=== PATIENT | male | born 1990 | race Two or more races ===

== ENCOUNTER 2023-11-16 16:36 | Outpatient (AMB) | payer BC, SELFPAY ==
--- NOTE | 2023-11-16 16:40 | A.OFFPC_ITS ---
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 No chest pain or shortness of breath. No acute complaints. REPLACED BY [facility] Surgical History Right forearm fracture Family History Father Hodgkin lymphoma Mother No problems noted. Social History (Updated 11/16/23 @ 20:03 by Dayana Flores MD) Housing: Apartment Alcohol intake: current Alcohol intake frequency: holidays/special occasions only Alcohol type: hard liquor Patient Tobacco Use Status: Never used Tobacco e-Cigarette/Vaping Use: Never Used Second Hand Smoke Exposure: No service: No Current occupational status: employed Current occupational exposures/hazards: No Cognitive needs: No Hearing needs: No Vision needs: No Questionnaire PHQ-9 Over the last 2 weeks, how often have you been bothered by any of the following problems? 1. Little interest or pleasure in doing things: not at all 2. Feeling down, depressed, or hopeless: not at all 3. Trouble falling or staying asleep, or sleeping too much: not at all 4. Feeling tired or having little energy: not at all 5. Poor appetite or overeating: not at all 6. Feeling bad about yourself - or that you are a failure or have let yourself or your family down: not at all 7. Trouble concentrating on things, such as reading the newspaper or watching television: not at all 8. Moving or speaking so slowly that other people could have noticed. Or the opposite - being so fidgety or restless that you have been moving around a lot more than usual: not at all 9. Thoughts that you would be better off or of hurting yourself in some way: not at all Total score: 0 Depression Screening Interpretation: Negative Depression Screening Done: Yes 49220 - PHQ-9 Billing: Yes Source: Developed by Drs. Shant Estes, Dominique Montes De Oca, Sloan Diego and colleagues, with an educational maulik from [employer]. Thrive Questionnaire Date Thrive assessed: 11/16/23 I am a: Patient What is your living situation today?: I have a steady place to live Within the past 12 months, did the food you bought not last and you didn't have the money to get more?: Never true Within the past 12 months, did you worry whether your food would run out before you got money to buy more?: Never true Do you have trouble paying for medicines?: No Do you have trouble getting transportation to medical appointments?: No Do you have trouble paying your heating and electricity bill?: No Do you have trouble taking care of your child, family member or friend?: No Do you have trouble with day-to-day activities such as bathing, preparing meals, shopping, managing finances, etc.?: No Are you currently unemployed and looking for a job?: No Are you interested in more education?: No Please select the resources that you would like help with: None Currently or been in a relationship where the following occur: no concerns reported THRIVE Score: 0 AUDIT C Alcohol Use Questionnaire (AUDIT-C) 1. How often do you have a drink containing alcohol?: Never Total Score: 0 SHERYL-7 AMB Questionnaire SHERYL-7 Date SHERYL - 7 assessed: 11/16/23 Feeling nervous, anxious, or on edge: 0 = Not at all Not being able to stop or control worryin = Not at all Worrying too much about different things: 0 = Not at all Trouble relaxin = Not at all Being so restless that it is hard to sit still: 0 = Not at all Becoming easily annoyed or irritable: 0 = Not at all Feeling afraid as if something awful might happen: 0 = Not at all Total SHERYL-7 score (0-4 normal; 5-9 mild; 10-14 moderate; 15-21 severe): 0 Source: Developed by Drs. Shant Estes, Dominique Montes De Oca, Sloan Diego and colleagues, with an educational maulik from [employer]. SHERYL-7 Assessment Billing SHERYL-7 Assessment Tool: SHERYL-7 Assessment 89411 Review of Systems Const All systems reviewed & are unremarkable except as noted in HPI and below Eyes Reports no additional complaints, Denies change in vision and Denies other visual disturbances Card Denies chest pain at rest, Denies chest pain with activity, Denies edema, Denies irregular heart rhythm, Denies claudication, Denies dyspnea, Denies dyspnea on exertion, Denies orthopnea, Denies paroxysmal nocturnal dyspnea and Denies slow heart rate Resp Denies cough, Denies dyspnea and Denies dyspnea on exertion GI Denies abdominal pain, Denies change in bowel habits, Denies excessive flatus, Denies nausea and Denies vomiting Denies urinary hesitancy, Denies urinary incontinence and Denies urinary urgency Musc Denies abnormal gait, Denies atrophy, Denies deformity and Denies limited range of motion Skin/Breast Denies bleeding lesions, Denies changing lesions and Denies rash Neuro Denies abnormal gait, Denies behavioral changes, Denies confusion and Denies [place] of coordination Psych Denies behavioral changes and Denies confusion Physical exam (Primary Care) Vital Signs: Last Vital Signs BP 116/72 11/16/23 16:41 BMI result Body Mass Index 31.2 Tobacco/Smoking Status: Tobacco use Status Tobacco use date assessed 11/16/23 11/16/23 16:49 Patient Tobacco Use Status Never used Tobacco 11/16/23 16:49 e-Cigarette/Vaping Use Never Used 11/16/23 16:49 PHQ-9: PHQ-9 Score PHQ-9: Total score 0 11/16/23 17:05 Depression Screening Interpretation: Negative Thrive Assessment: Date of Thrive Assessment Date Thrive assessed 11/16/23 11/16/23 16:49 Currently or been in a relationship where the following occur: no concerns reported Const General: No confusion Orientation/consciousness: patient oriented x3 and No confusion HENMT Head: Yes normal to inspection, Yes normocephalic and Yes atraumatic Ears: external ears normal Eyes General: appearance normal, both eyes and all related structures Eyelids: Yes eyelids normal Conjunctivae: conjunctivae normal Neck Neck: Yes normal visual inspection and Yes supple Resp Effort & Inspection: normal respiratory effort Auscultation: clear to auscultation bilaterally Cardio Jugular venous distension: no JVD Rate: regular rate Rhythm: regular rhythm Heart sounds: S1 normal heart sound present and S2 normal heart sound present GI Inspection: Yes normal to inspection Palpation (GI): Soft to palpation and nontender Auscultation: normal bowel sounds Skin General skin exam: no rashes or lesions noted Neuro General: patient oriented x3, no focal motor deficits and No confusion Extrem General: Yes full ROM Psych Appearance: grossly normal Assessment and Plan Assessment & Plan (1) Physical exam: Code(s): Z00.00 - Encounter for general adult medical examination without abnormal findings Plan: Repeat in a year. Orders: Orders Comprehensive [place]. Panel Fast Today Z00.00 - Encounter for general adult medical examination without abnormal findings Lipid Panel Today Z00.00 - Encounter for general adult medical examination without abnormal findings Complete Blood Count Auto Diff Today E66.9 - Obesity, unspecified, Z68.31 - Body mass index [BMI] 31.0-31.9, adult Coding Level of Care Code Est Pt Prev Care 18-39y(96143) Diagnoses Physical exam Z00.00 Additional Codes SHERYL-7 Assessment Billing - SHERYL-7 Assessment Tool: SHERYL-7 Assessment 24741 ([id number]) Time Spent (min) 33
[2023-11-16 16:41] VITALS: BP 116/72; BMI 31.2
== END 2023-11-16 17:08 | disposition home or self-care (01) ==
PROVIDERS: Visit Provider Internal Medicine
DX: Z00.00 Encounter for general adult medical examination without abnormal findings (principal)
CPT/HCPCS: 99395

== ENCOUNTER 2024-07-27 11:35 | Outpatient (AMB) | payer BC, SELFPAY ==
--- NOTE | 2024-07-27 11:39 | A.OFFPC_ITS ---
Vital Signs 07/27/24 11:44 Height 5 ft 8 in Weight 200 lb 4 oz BMI 30.4 BP 98/70 Blood Pressure Location Lt brachial Position Sitting Pulse 86 Pulse Source Pulse Oximeter Pulse Oximetry (%) 98 Oxygen Delivery Method Room Air Intake Visit Reasons: nerve issues on LT side of face Intake Note: Dr. Leon's patient is here for a follow-up from [facility] ED regarding numbness on the left side of the face, radiating to the left side of the neck. The patient was seen at [facility] ED for a left ear infection and was treated with Amoxicillin. Medical records have been requested. 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 He was recently seen at [facility] ER for acute left ear infection. His primary complaints were also left-sided numbness. He reports he has developed a bit of a lisp. He has no difficulty with swallowing. He does report when chewing he is not really able to feel the left side of his mouth. PENDING SALE TO [facility] Surgical History Right forearm fracture Family History Father Hodgkin lymphoma Mother No problems noted. Social History Housing: Apartment Alcohol intake: current Alcohol intake frequency: holidays/special occasions only Alcohol type: hard liquor Patient Tobacco Use Status: Never used Tobacco e-Cigarette/Vaping Use: Never Used Second Hand Smoke Exposure: No service: No Current occupational status: employed Current occupational exposures/hazards: No Cognitive needs: No Hearing needs: No Vision needs: No Questionnaire Thrive Questionnaire Date Thrive assessed: 11/16/23 SHERYL-7 AMB Questionnaire SHERYL-7 Date SHERYL - 7 assessed: 11/16/23 Source: Developed by Drs. Shant LDominique Momin, Sloan Diego and colleagues, with an educational maulik from [employer]. Review of Systems Const Denies headache(s) Eyes Denies loss of vision ENT Denies vertigo, Denies dizziness, Denies headache(s) and Denies sore throat Card Denies chest pain, Denies leg edema and Denies lightheadedness Resp Denies cough, Denies hemoptysis and Denies wheezing GI Denies abdominal pain, Denies melena, Denies constipation, Denies diarrhea and Denies vomiting Denies dysuria, Denies urinary frequency and Denies urinary urgency Musc Denies arthralgias, Denies joint swelling, Denies numbness and Denies tingling Neuro Denies Abnormal speech present, Denies behavioral changes, Denies vertigo, Denies dizziness, Denies headache(s), Denies loss of vision, Denies memory loss, Denies numbness and Denies tingling Psych Denies anxiety, Denies behavioral changes, Denies depression, Denies memory loss and Denies panic attacks Mo/Lymph Denies easy bleeding and Denies easy bruising Aller/Immun Denies wheezing Physical exam (Primary Care) Vital Signs: Last Vital Signs Pulse 86 07/27/24 11:44 BP 98/70 07/27/24 11:44 Pulse Ox 98 07/27/24 11:44 Oxygen Delivery Method Room Air 07/27/24 11:44 BMI result Body Mass Index 30.4 Tobacco/Smoking Status: Tobacco use Status Tobacco use date assessed 11/16/23 07/27/24 11:41 Patient Tobacco Use Status Never used Tobacco 07/27/24 11:41 e-Cigarette/Vaping Use Never Used 07/27/24 11:41 Thrive Assessment: Date of Thrive Assessment Date Thrive assessed 11/16/23 07/27/24 11:41 Const General: healthy appearing, no acute distress, alert and awake Nutritional Appearance: well nourished Orientation/consciousness: oriented to person, oriented to place and oriented to time HENMT Other: LEFT EAR: TYMPANIC MEMBRANE WITH SLIGHT BLOOD Ears: TM's normal bilaterally General nose exam: Normal nasal mucous membranes and turbinates present Eyes Conjunctivae: conjunctivae normal Sclerae: sclerae normal Pupils: Equal, round and reactive pupils present Neck Neck: Yes no lymphadenopathy and Yes no JVD Thyroid: Thyroid normal Carotids: no bruits Resp Effort & Inspection: normal respiratory effort and not tachypneic Auscultation: no crackles, no rales, no rhonchi and no wheezes Cardio Rate: regular rate Rhythm: regular rhythm Heart sounds: no murmurs and normal S1 and S2 GI Palpation (GI): Soft to palpation, nontender, no hepatomegaly and no splenomegaly Auscultation: normal bowel sounds Skin General skin exam: no rashes or lesions noted and dry skin Neuro General: oriented to person, oriented to place and oriented to time Cranial nerves: Yes Equal, round and reactive pupils present Speech: No Abnormal speech present Gait exam (Neuro): Normal gait present Motor exam (neuro): no tremor noted Extrem Right upper extremity: full ROM Left upper extremity: full ROM Right lower extremity: full ROM; no edema Left lower extremity: full ROM; no edema Psych Mental Status: mental status grossly normal Speech and movement: Normal speech and movement present Affect: normal affect Attitude: cooperative Thought process: Normal thought process present Office Procedures Flu Questionnaire Does the patient have a severe egg allergy?: No Immunizations Fluarix Triv [id number] (PF) 45 mcg (15 mcg x 3)/0.5 mL IM syringe Performing Provider: Terrell Willett PA-C [place] [facility] [place] [facility] Documented (not given) by: BRENNA Altman on 07/27/24 11:51 Reason Not Given: Received Previously Coding Level of Care Code Est Pt Level 3 (39595) Diagnoses Facial paralysis/[place] palsy G51.0 Assessment & Plan Assessment & Plan (1) Facial paralysis/[place] palsy: Code(s): G51.0 - Han's palsy Category: Medical Plan: 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 He is currently being treated for left-sided ear infection as well. Has left eardrum does appear to have some blood though no bulging and no external canal erythema or edema. He will continue the rest of his antibiotics. He does understand the clinical course Han's palsy disease. Orders: Orders Influenza [id number] Immunization Today Z23 - Encounter for immunization
[2024-07-27 11:44] VITALS: BP 98/70; PULSE 86; O2SAT 98; BMI 30.4
== END 2024-07-27 12:29 | disposition home or self-care (01) ==
LOC: HO.HMCH 11:36
PROVIDERS: PCP Internal Medicine; Visit Provider Physician Assistant
DX: Z23 Encounter for immunization (principal); G51.0 Bell's palsy

== ENCOUNTER → 2024-07-27 11:35 | Outpatient (BNVA) | payer BC, SELFPAY | PROVIDERS: PCP Internal Medicine; Visit Provider Physician Assistant | DX: G51.0 Bell's palsy (principal) | CPT/HCPCS: 90471 ==

== ENCOUNTER 2024-09-21 12:59 | Outpatient (AMB) | payer BC, SELFPAY ==
[2024-09-21 13:01] VITALS: BP 110/62; PULSE 92; O2SAT 96; BMI 30.6
--- NOTE | 2024-09-21 13:01 | A.OFFPC_ITS ---
Vital Signs 09/21/24 13:01 Height 5 ft 8 in Weight 201 lb 4 oz BMI 30.6 BP 110/62 Blood Pressure Location Lt brachial Position Sitting Pulse 92 Pulse Source Pulse Oximeter Pulse Oximetry (%) 96 Oxygen Delivery Method Room Air Intake Visit Reasons: Injury to the right thumb Intake Note: The patient is here for a right thumb injury sustained while closing a car door, causing the thumb to be jammed. The patient has been experiencing swelling with pain since yesterday. 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 The incident occurred when the patient's [id number]-yjny-ram son accidentally closed a door on the patient's hand. The event happened quite recently, and the patient noticed some swelling but reported good movement in the affected hand and minimal pain. The patient did not seek immediate care after the injury. There is no prior history of similar injuries or chronic hand issues reported. [facility] Surgical History Right forearm fracture Family History Father Hodgkin lymphoma Mother No problems noted. Social History Housing: Apartment Alcohol intake: current Alcohol intake frequency: holidays/special occasions only Alcohol type: hard liquor Patient Tobacco Use Status: Never used Tobacco e-Cigarette/Vaping Use: Never Used Second Hand Smoke Exposure: No service: No Current occupational status: employed Current occupational exposures/hazards: No Cognitive needs: No Hearing needs: No Vision needs: No Questionnaire PHQ-9 Over the last 2 weeks, how often have you been bothered by any of the following problems? 1. Little interest or pleasure in doing things: not at all 2. Feeling down, depressed, or hopeless: not at all 3. Trouble falling or staying asleep, or sleeping too much: not at all 4. Feeling tired or having little energy: not at all 5. Poor appetite or overeating: not at all 6. Feeling bad about yourself - or that you are a failure or have let yourself or your family down: not at all 7. Trouble concentrating on things, such as reading the newspaper or watching television: not at all 8. Moving or speaking so slowly that other people could have noticed. Or the opposite - being so fidgety or restless that you have been moving around a lot more than usual: not at all 9. Thoughts that you would be better off or of hurting yourself in some way: not at all Total score: 0 Depression Screening Interpretation: Negative Depression Screening Done: Yes 24435 - PHQ-9 Billing: Yes Source: Developed by Drs. Shant Estes, Dominique Montes De Oca, Sloan Diego and colleagues, with an educational maulik from [email or web address]. Thrive Questionnaire Date Thrive assessed: 09/21/24 I am a: Patient What is your living situation today?: I have a steady place to live Within the past 12 months, did the food you bought not last and you didn't have the money to get more?: Never true Within the past 12 months, did you worry whether your food would run out before you got money to buy more?: Never true Do you have trouble paying for medicines?: No Do you have trouble getting transportation to medical appointments?: No Do you have trouble paying your heating and electricity bill?: No Do you have trouble taking care of your child, family member or friend?: No Do you have trouble with day-to-day activities such as bathing, preparing meals, shopping, managing finances, etc.?: No Are you currently unemployed and looking for a job?: No Are you interested in more education?: No Please select the resources that you would like help with: None Currently or been in a relationship where the following occur: No concerns reported THRIVE Score: 0 AUDIT C Alcohol Use Questionnaire (AUDIT-C) 1. How often do you have a drink containing alcohol?: Monthly or less 2. How many drinks containing alcohol do you have on a typical day when you are drinking?: 1 or 2 3. How often do you have six or more drinks on one occasion?: Never Total Score: 1 Score Reviewed/Action Taken: No SHERYL-7 AMB Questionnaire SHERYL-7 Date SHERYL - 7 assessed: 09/21/24 Feeling nervous, anxious, or on edge: 0 = Not at all Not being able to stop or control worryin = Not at all Worrying too much about different things: 0 = Not at all Trouble relaxin = Not at all Being so restless that it is hard to sit still: 0 = Not at all Becoming easily annoyed or irritable: 0 = Not at all Feeling afraid as if something awful might happen: 0 = Not at all Total SHERYL-7 score (0-4 normal; 5-9 mild; 10-14 moderate; 15-21 severe): 0 Source: Developed by Drs. Shant Estes, Dominique Montes De Oca, Sloan Diego and colleagues, with an educational maulik from [email or web address]. SHERYL-7 Assessment Billing SHERYL-7 Assessment Tool: SHERYL-7 Assessment 93190 Review of Systems Const Details: - Musculoskeletal: Reports slight swelling of the hand. Physical exam (Primary Care) Vital Signs: Last Vital Signs Pulse 92 09/21/24 13:01 BP 110/62 09/21/24 13:01 Pulse Ox 96 09/21/24 13:01 Oxygen Delivery Method Room Air 09/21/24 13:01 BMI result Body Mass Index 30.6 BMI Assessment/Plan discussion: High BMI High, discussed plan: lifestyle, weight reduction, dietary and physical activity Tobacco/Smoking Status: Tobacco use Status Tobacco use date assessed 11/16/23 09/21/24 13:03 Patient Tobacco Use Status Never used Tobacco 09/21/24 13:03 e-Cigarette/Vaping Use Never Used 09/21/24 13:03 PHQ-9: PHQ-9 Score PHQ-9: Total score 0 09/21/24 13:03 Depression Screening Interpretation: Negative Thrive Assessment: Date of Thrive Assessment Date Thrive assessed 09/21/24 09/21/24 13:03 Currently or been in a relationship where the following occur: No concerns rep orted Const Other: General: No confusion Respiratory: Normal respiratory effort, clear to auscultation bilaterally Cardiovascular: No jugular venous distension, regular rate, regular rhythm, S1 normal heart sound present and S2 normal heart sound present Extremities: Full ROM, but swelling noted on one hand due to recent injury; good movement observed, minimal pain reported Office Procedures Flu Questionnaire Does the patient have a severe egg allergy?: No Immunizations Fluarix Triv [id number] (PF) 45 mcg (15 mcg x 3)/0.5 mL IM syringe Performing Provider: Dayana Flores MD [place] [facility] [place] [facility] Documented (not given) by: BRENNA Altman on 09/21/24 13:13 Reason Not Given: Patient Refused Coding Level of Care Code Est Pt Level 3 (69674) Complex EM visit Add On G2211 Diagnoses Injury of right thumb S69.91XA Additional Codes SHERYL-7 Assessment Billing - SHERYL-7 Assessment Tool: SHERYL-7 Assessment 12630 ([id number]) PHQ-9 - 86948 - PHQ-9 Billing: Yes ([id number]) Time Spent (min) 19 Assessment & Plan Assessment & Plan (1) Injury of right thumb: Code(s): S69.91XA - Unspecified injury of right wrist, hand and finger(s), initial encou nter Category: Medical Plan - Obtain an X-ray of the affected hand to rule out any fractures. - Instructed the patient to apply ice to the affected area to manage swelling. - Advised using the hand as tolerated unless further diagnostics suggest specific restrictions. Patient was informed and verbally consented to the use of an ambient scribe for clinic note documentation during this visit. Orders: Orders Influenza [id number] Immunization Today Z23 - Encounter for immunization XR hand RT 2V Today S69.91XA - Unspecified injury of right wrist, hand and finger(s), initial encounter
== END 2024-09-21 13:32 | disposition home or self-care (01) ==
PROVIDERS: PCP Internal Medicine; Visit Provider Internal Medicine
DX: Z23 Encounter for immunization (principal); S69.91XA Unspecified injury of right wrist, hand and finger(s), initial encounter

== ENCOUNTER 2024-09-21 12:59 | Outpatient (REF) | payer BC, SELFPAY ==
--- NOTE | ~2024-09-21 | XR_ITS ---
EXAMINATION: XR HAND, RIGHT CLINICAL INFORMATION: S69.91XA - Unspecified injury of right wrist, hand and finger(s), initia... COMPARISON: None available. TECHNIQUE: PA, lateral, and oblique views of the right hand. FINDINGS: The bones and soft tissues are normal. No fracture. Alignment is anatomic. Joint spaces are maintained. No erosions or soft tissue calcifications. XR/XR hand RT 2V IMPRESSION: Unremarkable right hand. Electronically signed by: Feliciano Levine MD 09/21/2024 05:13 PM EST
== END 2024-09-21 13:00 | disposition home or self-care (01) ==
LOC: HO.XRAY 12:59
PROVIDERS: PCP Internal Medicine; Visit Provider Internal Medicine
DX: S69.91XA Unspecified injury of right wrist, hand and finger(s), initial encounter (principal)
CPT/HCPCS: 73120; 90471; 96127

== ENCOUNTER → 2024-09-21 13:41 | Outpatient (BNV) | payer BC, SELFPAY | PROVIDERS: PCP Internal Medicine; Visit Provider Radiology Diagnostic Radiology | DX: S69.91XA Unspecified injury of right wrist, hand and finger(s), initial encounter (principal) | CPT/HCPCS: 73120 ==

== ENCOUNTER 2024-12-04 08:39 | Outpatient (AMB) | payer BC, SELFPAY ==
[2024-12-04 08:45] VITALS: BP 112/80; PULSE 92; O2SAT 95; BMI 31.4
--- NOTE | 2024-12-04 08:45 | MHC.PC.OV ---
Vital Signs 12/04/24 08:45 Height 5 ft 8 in Weight 206 lb 4 oz BMI 31.4 BP 112/80 Blood Pressure Location Lt brachial Position Sitting Pulse 92 Pulse Source Pulse Oximeter Pulse Oximetry (%) 95 Oxygen Delivery Method Room Air Intake Visit Reasons: PE Medical Policy Specialist Required: No Accompanied by: Self / Same As Patient Allergies No Known Allergies Allergy (Verified 12/04/24 08:54) Medication List - Last Reconciled 12/04/24 by [facility] Deutsch No Known Home Meds Tobacco use date assessed: 12/04/24 Dental Screening Dental Screen Date: 12/04/24 Did you have a dental visit in the last 12 months?: Yes Did you have a dental problem in the last 6 months where you did not have access to dental care?: No Was dental information given to patient?: Patient has dentist HPI PE HPI Details The patient is presenting for annul physical Dentist: up to date Eye: none in a whole-will make appt Snellen: Right: Left: Corrected vision:no STI screening: Colonoscopy: Pap Smer: PHQ-9: Flu:decline COVID: decline Tdap:up to date Diet: regular Exercise: ocassionally-works in a warehouse mother had cancerous polyp-will order colonoscopy [facility] Surgical History Right forearm fracture Family History Father Hodgkin lymphoma Mother No problems noted. Social History Housing: Apartment Alcohol intake: current Alcohol intake frequency: holidays/special occasions only Alcohol type: hard liquor Patient Tobacco Use Status: Never used Tobacco e-Cigarette/Vaping Use: Never Used Second Hand Smoke Exposure: No service: No Current occupational status: employed Current occupational exposures/hazards: No Cognitive needs: No Hearing needs: No Vision needs: No Questionnaire PHQ-9 Over the last 2 weeks, how often have you been bothered by any of the following problems? 1. Little interest or pleasure in doing things: not at all 2. Feeling down, depressed, or hopeless: not at all 3. Trouble falling or staying asleep, or sleeping too much: not at all 4. Feeling tired or having little energy: not at all 5. Poor appetite or overeating: not at all 6. Feeling bad about yourself - or that you are a failure or have let yourself or your family down: not at all 7. Trouble concentrating on things, such as reading the newspaper or watching television: not at all 8. Moving or speaking so slowly that other people could have noticed. Or the opposite - being so fidgety or restless that you have been moving around a lot more than usual: not at all 9. Thoughts that you would be better off or of hurting yourself in some way: not at all Total score: 0 Depression Screening Interpretation: Negative Depression Screening Done: Yes 34596 - PHQ-9 Billing: Yes Source: Developed by Drs. Shant Estes, Dominique Montes De Oca, Sloan Diego and colleagues, with an educational maulik from [employer]. Thrive Questionnaire Date Thrive assessed: 12/04/24 I am a: Patient What is your living situation today?: I have a steady place to live Within the past 12 months, did the food you bought not last and you didn't have the money to get more?: Never true Within the past 12 months, did you worry whether your food would run out before you got money to buy more?: Never true Do you have trouble paying for medicines?: No Do you have trouble getting transportation to medical appointments?: No Do you have trouble paying your heating and electricity bill?: No Do you have trouble taking care of your child, family member or friend?: No Do you have trouble with day-to-day activities such as bathing, preparing meals, shopping, managing finances, etc.?: No Are you currently unemployed and looking for a job?: No Are you interested in more education?: No Please select the resources that you would like help with: None Currently or been in a relationship where the following occur: No concerns reported THRIVE Score: 0 AUDIT C Alcohol Use Questionnaire (AUDIT-C) 1. How often do you have a drink containing alcohol?: Monthly or less 2. How many drinks containing alcohol do you have on a typical day when you are drinking?: 1 or 2 3. How often do you have six or more drinks on one occasion?: Never Total Score: 1 Score Reviewed/Action Taken: No SHERYL-7 AMB Questionnaire SHERYL-7 Date SHERYL - 7 assessed: 09/21/24 Source: Developed by Drs. Shant Estes, Dominique Montes De Oca, Sloan Diego and colleagues, with an educational maulik from [employer]. Review of Systems Const Denies headache(s) Eyes Denies loss of vision ENT Denies vertigo, Denies dizziness, Denies headache(s) and Denies sore throat Card Denies chest pain, Denies leg edema and Denies lightheadedness Resp Denies cough, Denies hemoptysis and Denies wheezing GI Denies abdominal pain, Denies melena, Denies constipation, Denies diarrhea and Denies vomiting Denies dysuria, Denies urinary frequency and Denies urinary urgency Musc Denies arthralgias, Denies joint swelling, Denies numbness and Denies tingling Neuro Denies Abnormal speech present, Denies behavioral changes, Denies vertigo, Denies dizziness, Denies headache(s), Denies loss of vision, Denies memory loss, Denies numbness and Denies tingling Psych Denies anxiety, Denies behavioral changes, Denies depression, Denies memory loss and Denies panic attacks Mo/Lymph Denies easy bleeding and Denies easy bruising Aller/Immun Denies wheezing Physical exam (Primary Care) Vital Signs: Last Vital Signs Pulse 92 12/04/24 08:45 BP 112/80 12/04/24 08:45 Pulse Ox 95 12/04/24 08:45 Oxygen Delivery Method Room Air 12/04/24 08:45 BMI result Body Mass Index 31.4 Tobacco/Smoking Status: Tobacco use Status Tobacco use date assessed 12/04/24 12/04/24 08:50 Patient Tobacco Use Status Never used Tobacco 12/04/24 08:45 e-Cigarette/Vaping Use Never Used 12/04/24 08:45 PHQ-9: PHQ-9 Score PHQ-9: Total score 0 12/04/24 08:50 Depression Screening Interpretation: Negative Thrive Assessment: Date of Thrive Assessment Date Thrive assessed 12/04/24 12/04/24 08:50 Currently or been in a relationship where the following occur: No concerns reported Const General: healthy appearing, no acute distress, alert and awake Nutritional Appearance: well nourished Orientation/consciousness: oriented to person, oriented to place and oriented to time HENMT Ears: TM's normal bilaterally General nose exam: Normal nasal mucous membranes and turbinates present Eyes Conjunctivae: conjunctivae normal Sclerae: sclerae normal Pupils: Equal, round and reactive pupils present Neck Neck: Yes no lymphadenopathy and Yes no JVD Thyroid: Thyroid normal Carotids: no bruits Resp Effort & Inspection: normal respiratory effort and not tachypneic Auscultation: no crackles, no rales, no rhonchi and no wheezes Cardio Rate: regular rate Rhythm: regular rhythm Heart sounds: no murmurs and normal S1 and S2 GI Inspection: Yes incision (old scars) Palpation (GI): Soft to palpation, nontender, no hepatomegaly and no splenomegaly Auscultation: normal bowel sounds Skin General skin exam: no rashes or lesions noted and dry skin Neuro General: oriented to person, oriented to place and oriented to time Cranial nerves: Yes Equal, round and reactive pupils present Speech: No Abnormal speech present Gait exam (Neuro): Normal gait present Motor exam (neuro): no tremor noted Extrem Right upper extremity: full ROM Left upper extremity: full ROM Right lower extremity: full ROM; no edema Left lower extremity: full ROM; no edema Psych Mental Status: mental status grossly normal Speech and movement: Normal speech and movement present Affect: normal affect Attitude: cooperative Thought process: Normal thought process present Coding Level of Care Code Est Pt Prev Care 18-39y([id number]) Diagnoses Physical exam Z00.00 Class 1 obesity with body mass index (BMI) of 31.0 to 31.9 in adult, unspecified obesity type, unspecified whether serious comorbidity present E66.811; Z68.31 Obesity type: unspecified obesity type Serious obesity comorbidity presence: unspecified whether serious comorbidity present Screening for colorectal cancer Z12.11; Z12.12 Additional Codes PHQ-9 - 84730 - PHQ-9 Billing: Yes ([id number]) Time Spent (min) 31 Assessment & Plan Assessment & Plan (1) Physical exam: Code(s): Z00.00 - Encounter for general adult medical examination without abnormal findings Category: Medical Plan: Preventative guidelines, will order labs for the patient to get martín. The patient is up to date on all screenings. The patient request to be screen for colon cancer due family history (2) Class 1 obesity with body mass index (BMI) of 31.0 to 31.9 in adult: Code(s): E66.9 - Obesity, unspecified; Z68.31 - Body mass index [BMI] 31.0-31.9, adult Category: Medical Qualifiers: Obesity type: unspecified obesity type Serious obesity comorbidity presence: unspecified whether serious comorbidity present Qualified Code(s): E66.811 - Obesity, class 1; Z68.31 - Body mass index [BMI] 31.0-31.9, adult Plan: Encouraged to exercise for at least 30 minutes a day/5 days a week Healthy eating discussed. Encouraged to eat fruits/vegetables, protein-fish/baked chicken, and to avoid salty/fried foods, sweets, caffeine and carbohydrates. Encouraged to increase water intake 6-8 glasses a day (3) Screening for colorectal cancer: Code(s): Z12.11 - Encounter for screening for malignant neoplasm of colon; Z12.12 - Encounter for screening for malignant neoplasm of rectum Category: Medical Plan: GI referral placed Orders: Orders Complete Blood Count Auto Diff Today Z00.00 - Encounter for general adult medical examination without abnormal findings Lipid Panel Today Z00.00 - Encounter for general adult medical examination without abnormal findings Vitamin D 25-OH Total Today Z00.00 - Encounter for general adult medical examination without abnormal findings UA CC w/rflx Micro + Cult Today Z00.00 - Encounter for general adult medical examination without abnormal findings TSH reflex Free T4 Today Z00.00 - Encounter for general adult medical examination without abnormal findings Comprehensive [place]. Panel Fast Today Z00.00 - Encounter for general adult medical examination without abnormal findings Glucose Fasting Today Z00.00 - Encounter for general adult medical examination without abnormal findings
--- OUTSIDE RECORDS SUMMARY | 2024-12-04 08:57 | XMS_ITS | Clinical Summary ---
Author Organization [facility] Address [address] [place] [address] Phone Care Team Providers Care Steel Roller Name Role Phone Dayana Flores MD Primary Care Provider [phone] Allergies No known active allergies Social History Tobacco Use Types Packs/Day Years Used Date Smoking Tobacco: Never Passive Smoke Exposure: Never Smokeless Tobacco: Never Tobacco Cessation:Counseling Given: Not Answered Alcohol Use Standard Drinks/Week Comments Never 0 (1 standard drink = 0.6 oz pur e alcohol) Sex and Gender Information Value Date Recorded Sex Assigned at Not on file Legal Sex Male 2:14 AM EST Gender Identity Not on file Sexual Orientation Not on file Obstetrics History Last Filed Vital Signs Vital Sign Reading Time Taken Comments Blood Pressure 126/81 08/09/2024 5:20 AM EST Pulse 77 08/09/2024 5:20 AM EST Temperature 36.3 ??C (97.3 ??F) 08/09/2024 5:20 AM ES T Respiratory Rate 18 08/09/2024 5:20 AM EST Oxygen Saturation 98% 08/09/2024 5:23 AM EST Inhaled Oxygen Concentration - - Weight 90.7 kg (200 lb) 07/23/2024 11:19 AM EST Height 172.7 cm (5' 8 ) 07/23/2024 11:19 AM EST Body Mass Index 30.41 07/23/2024 11:19 AM EST Plan of Treatment Health Maintenance Due Date Last Done Comments Hepatitis B Vaccines (1 of 3 - 19+ 3-dose series) 2010 Depression Screening 10/19/2023 HIV Screening 10/19/2023 Hepatitis C Screening 10/19/2023 Social Influencers of Health Screening 10/19/2023 COVID-19 Vaccine (1 - 2023-2 5 season) 2024 Influenza Vaccine (#1) 2024 09/09/2015 DTaP,Tdap,and Td Vaccines (2 - Td or Tdap) 01/28/2034 01/29/2024 HIB Vaccines Aged Out No longer eligi ble based on patient's age to complete this topic HPV Vaccines Aged Out No longer eligi ble based on patient's age to complete this topic Hepatitis A Vaccines Aged Out No long er eligible based on patient's age to complete this topic IPV Vaccines Aged Out No longer eligi ble based on patient's age to complete this topic MMR Vaccines Aged Out No longer eligi ble based on patient's age to complete this topic Meningococcal ACWY Vaccine Aged Out N o longer eligible based on patient's age to complete this topic Meningococcal B Vacine Aged Out No lo nger eligible based on patient's age to complete this topic Pneumococcal Vaccine: Pediat rics (0 to 5 Years) and At-Risk Patients (6 to 64 Years) Aged Out No longer eligi ble based on patient's age to complete this topic RSV Immunization Patients Un ace 20 months Aged Out No longer eligible b ased on patient's age to complete this topic Varicella Vaccines Aged Out No longer eligible based on patient's age to complete this topic Insurance Care Teams Steel Roller Relationship Specialty Start Date End Date Dayana Flores MD [address] [place] [id number] PCP - General Internal Medicine 07/23/24
== END 2024-12-04 09:15 | disposition home or self-care (01) ==
LOC: HO.HMCH 08:39
PROVIDERS: PCP Internal Medicine
DX: Z00.00 Encounter for general adult medical examination without abnormal findings (principal); E66.811 Obesity, class 1; Z68.31 Body mass index [BMI] 31.0-31.9, adult; Z12.11 Encounter for screening for malignant neoplasm of colon; Z12.12 Encounter for screening for malignant neoplasm of rectum

== ENCOUNTER → 2024-12-04 08:39 | Outpatient (BNVA) | payer BC, SELFPAY | PROVIDERS: PCP Internal Medicine | DX: Z00.00 Encounter for general adult medical examination without abnormal findings (principal); E66.811 Obesity, class 1; Z68.31 Body mass index [BMI] 31.0-31.9, adult | CPT/HCPCS: 96127 ==